=== PATIENT | female | born 1950 | race Caucasian/White ===

== ENCOUNTER 2018-05-17 11:05 | Emergency (ER) | payer MEDICARE, OTHER ==
[2018-05-17] MEDS ORDERED: methylPREDNISolone SOD SUCC 125 MG/2 ML VIAL IM ONE (11:19)
[2018-05-17] MEDS ORDERED: FAMOTIDINE 20 MG TABLET PO ONE (11:20)
--- NOTE | 2018-05-17 11:29 | ED Physician Documentation ---
Allergy Symptoms - HISTORIAN Historian: patient - HPI Stated Complaint: Allergic reactoin Chief Complaint: Allergic Reaction Additional Information: Patients to ER with a 24 hour history of rash to feet and face (under both eyes) with swelling. Patient states 2 days ago she applied a new medicine her PCP prescribed to her feet. The medication was compounded Gabapentin topical for neuropathy. Patient states she began to notice rash to her feet and swelling under both eyes. She washed her feet well and stopped using the drug. Today, however, the swelling under her eyes was worse causing difficulty with driving so she stopped in the ED on her way to [place] from [place]. She denies lip, tongue or mouth swelling. There is no difficulty with breathing or wheezing. Onset: hours (24) Duration: continues in ED Associated Symptoms: skin rash, facial, other (feet) Swelling: face, feet. denies: lip(s), tongue, throat Identified Cause: yes Context: Food Exposure: none Where: home Context: Medication Exposure: other (topical gabapentin compounded) Further Comments: no - ROS EYES/ENT: denies: eye redness, eye itching CVS/RESP: denies: chest pain, shortness of breath, cough GI/: denies: vomiting, nausea CONST: denies: fever MS/SKIN/LYMPH: none NEURO/PSYCH: denies: headache - PAST HX Prior Allergic Reaction: none Medical History: diabetes Type 2 Allergies/Adverse Reactions: Allergies Allergy/AdvReac Type Severity Reaction Status Date / Time Sulfa (Sulfonamide Allergy Verified 05/17/18 11:25 Antibiotics) Home Medications: Ambulatory Orders Medication Instructions Recorded Bumetanide [Bumex] 05/17/18 Hydroxyzine HCl [Atarax] 25 mg PO BID PRN #30 tablet 05/17/18 Spironolactone 05/17/18 predniSONE [Deltasone] 20 mg PO DIRECTED #10 tablet 05/17/18 - SOCIAL HX Smoking History: non-smoker Alcohol Use: none Drug Use: none - FAMILY HX Family History: No - VITAL SIGNS Vital Signs: Vital Signs Temp Pulse Resp BP Pulse Ox 99.2 F 94 H 20 161/90 95 05/17/18 11:05 05/17/18 11:05 05/17/18 11:05 05/17/18 11:05 05/17/18 11:05 - REVIEWED ASSESSMENTS Nursing Assessment Reviewed: Yes Vitals Reviewed: Yes ED Results Lab/Radiology - Orders Orders: ED Orders Category Date Time Status Famotidine [Pepcid] Med 05/17/18 11:20 Discontinued 40 mg PO NOW ONE methylPREDNISolone SOD SUCC [Solu-MEDROL] Med 05/17/18 11:19 Discontinued 125 mg IM NOW ONE Allergy Symptons Exam - EXAM General Appearance: no acute distress, alert HEENT: ENT nml inspection, pharynx nml Skin: skin rash, erythema (feet/face), urticaria Extremities: non-tender, edema (trace lower extremity swelling bilaterally) Respiratory: no resp. distress, breath sounds nml, respiratory distress CVS: reg rate & rhythm, heart sounds normal Abdomen: non-tender, nml bowel sounds Neuro: oriented X3, motor nml Discharge Clincal Impression: Allergic reaction caused by a drug Qualifiers: Encounter type: initial encounter Qualified Code(s): T78.40XA - Allergy, unspecified, initial encounter Prescriptions: Hydroxyzine HCl [Atarax] 25 mg PO BID PRN #30 tablet PRN Reason: itching/rash predniSONE [Deltasone] 20 mg PO DIRECTED #10 tablet Referrals: Primary Doctor,No [Primary Care Provider] - 2 Days Additional Instructions: 1. Take prednisone as directed 2. Take Pepcid 20mg twice daily until symptoms resolved 3. Atarax may be used in place of Benedryl. Both of these medications cause drowsiness so do not drive while taking them. Only use at night. 4. Follow up with PCP within 1 week. 5. STOP applying topical agent with Gabapentin 6. Return to ER with new or worsening symptoms. Condition: Stable Disposition: 01 HOME, SELF-CARE Decision to Admit: NO Date of Decison to Admit: 05/17/18 Decision Time: 11:49
[2018-05-17 12:13] VITALS: BP 147/84
== END 2018-05-17 12:10 | disposition home or self-care (01) ==
LOC: ED 11:05
DX: L50.0 Allergic urticaria (principal); T42.6X5A Adverse effect of other antiepileptic and sedative-hypnotic drugs, initial encounter; Y92.009 Unspecified place in unspecified non-institutional (private) residence as the place of occurrence of the external cause
CPT/HCPCS: 96372; 99283; 99284; J2930